=== PATIENT | female | born 1970 | race African-American/Black ===

== ENCOUNTER 2021-06-28 15:24 | Inpatient (IN) | payer OTHER ==
[2021-06-28 16:26] VITALS: BMI 36.9
[2021-06-28] MEDS ORDERED: ACETAMINOPHEN 325 MG TABLET (FP) PO PRN (17:14)
[2021-06-28] MEDS ORDERED: BENZOCAINE/MENTHOL (CHLORASEPTIC ) LOZENGE MM PRN (17:14)
[2021-06-28] MEDS ORDERED: MAG HYDROX/AL HYDROX/SIMETH 30 ML UNIT-DOSE CUP PO PRN (17:14)
[2021-06-28] MEDS ORDERED: MAGNESIUM HYDROX 2400MG/30ML ORAL SUSPENSION 30 ML CUP PO PRN (17:14)
[2021-06-28] MEDS ORDERED: METHOCARBAMOL 500 MG TABLET PO PRN (17:14)
[2021-06-28] MEDS ORDERED: LOPERAMIDE HCL 2 MG CAPSULE PO PRN (17:14)
[2021-06-28] MEDS ORDERED: ONDANSETRON *ODT* 4 MG TABLET SL PRN (17:14)
[2021-06-28] MEDS ORDERED: IBUPROFEN 400 MG TABLET (FP) PO PRN (17:14)
[2021-06-28] MEDS ORDERED: BISMUTH SUBSALICYLATE 524 MG/30 ML PO PRN (17:14)
[2021-06-28] MEDS ORDERED: NICOTINE 10 MG CARTRIDGE (INHALER) IH PRN (17:14)
[2021-06-28] MEDS ORDERED: MAGNESIUM CITRATE 300 ML BOTTLE PO PRN (17:14)
[2021-06-28] MEDS ORDERED: DICYCLOMINE HCL 10 MG CAPSULE PO PRN (17:14)
[2021-06-28] MEDS ORDERED: hydrOXYzine PAMOATE 25 MG CAPSULE (FP) PO SCH (18:00)
[2021-06-28] MEDS: ACETAMINOPHEN 325 MG TABLET (FP) PO PRN (21:09)
[2021-06-28] MEDS: hydrOXYzine PAMOATE 25 MG CAPSULE (FP) PO PRN (21:09)
[2021-06-28] MEDS ORDERED: MELATONIN 5 MG TABLETS PO SCH (22:00)
[2021-06-28] MEDS: THIAMINE HCL 100 MG TABLET (FP) PO SCH (22:27)
[2021-06-28] MEDS: diazePAM 5 MG TABLET PO SCH (22:29)
[2021-06-29] MEDS: diazePAM 5 MG TABLET PO SCH ×4 (05:17→22:19)
[2021-06-29] MEDS: PRENATAL VITAMINS W/ FOLIC ACID TABLET (FP) PO SCH (10:24)
[2021-06-29 11:08] LABS: HEMATOCRIT 34.9 % (32.4-45.2); HEMOGLOBIN 11.6 GM/dL (10.7-15.3); MCH 30.8 pg (25.7-33.7); MCHC 33.3 g/dl (32.0-36.0); MEAN CELL VOLUME 92.3 fl (80-96); MEAN PLT VOLUME 8.3 fl (7.5-11.1); PLATELET COUNT 254 10^3/uL (134-434); RBC 3.77 M/mm3 (3.60-5.2)
[2021-06-29] MEDS ORDERED: DULoxetine HCL 20 MG CAPSULE.DR PO ONE (11:13)
[2021-06-29] MEDS ORDERED: LURASIDONE HCL 20 MG TABLET PO ONE (11:13)
[2021-06-29 11:31] LABS: ALBUMIN 3.2 g/dl (3.4-5.0); BLOOD UREA NITROGEN 14.6 mg/dL (7-18)
[2021-06-29 11:32] LABS: CREATININE 0.7 mg/dL (0.55-1.3)
[2021-06-29 11:34] LABS: BILIRUBIN,TOTAL 0.4 mg/dL (0.2-1); CALCIUM 8.2 mg/dL (8.5-10.1); TOT PROT 5.6 g/dl (6.4-8.2)
[2021-06-29] MEDS ORDERED: cloNIDine HCL 0.1 MG TABLET PO ONE (13:40)
[2021-06-29] MEDS: hydrOXYzine PAMOATE 25 MG CAPSULE (FP) PO PRN (17:40)
[2021-06-29] MEDS: ACETAMINOPHEN 325 MG TABLET (FP) PO PRN (17:41)
[2021-06-29] MEDS ORDERED: traZODone HCL 50 MG TABLET (FP) PO PRN (22:00)
[2021-06-29] MEDS: THIAMINE HCL 100 MG TABLET (FP) PO SCH (22:18)
[2021-06-29] MEDS: MELATONIN 5 MG TABLETS PO PRN (22:18)
[2021-06-29] MEDS: BENZTROPINE MESYLATE 1 MG TABLET PO SCH (22:18)
[2021-06-30] MEDS: diazePAM 5 MG TABLET PO SCH ×3 (06:04→22:03)
[2021-06-30] MEDS ORDERED: DULoxetine HCL 60 MG CAPSULE.DR PO SCH (10:00)
[2021-06-30] MEDS ORDERED: LURASIDONE HCL 20 MG TABLET PO SCH (10:00)
[2021-06-30] MEDS: DULOXETINE HCL 60 MG, DULOXETINE HCL 20 MG PO SCH (10:13)
[2021-06-30] MEDS: PRENATAL VITAMINS W/ FOLIC ACID TABLET (FP) PO SCH (10:13)
[2021-06-30] MEDS: LURASIDONE HCL PO SCH (10:14)
[2021-06-30] MEDS: diazePAM 5 MG TABLET PO PRN (18:33)
[2021-06-30] MEDS: hydrOXYzine PAMOATE 25 MG CAPSULE (FP) PO PRN (22:03)
[2021-06-30] MEDS: MELATONIN 5 MG TABLETS PO PRN (22:03)
[2021-06-30] MEDS: BENZTROPINE MESYLATE 1 MG TABLET PO SCH (22:04)
[2021-06-30] MEDS: THIAMINE HCL 100 MG TABLET (FP) PO SCH (22:05)
[2021-06-30] MEDS: ACETAMINOPHEN 325 MG TABLET (FP) PO PRN (22:06)
[2021-07-01] MEDS: diazePAM 5 MG TABLET PO SCH ×2 (06:52→17:51)
[2021-07-01] MEDS: PRENATAL VITAMINS W/ FOLIC ACID TABLET (FP) PO SCH (10:15)
[2021-07-01] MEDS: LURASIDONE HCL PO SCH (10:15)
[2021-07-01] MEDS: DULOXETINE HCL 60 MG, DULOXETINE HCL 20 MG PO SCH (10:15)
[2021-07-01] MEDS: hydrOXYzine PAMOATE 25 MG CAPSULE (FP) PO PRN ×3 (10:17→22:08)
[2021-07-01] MEDS ORDERED: cloNIDine HCL 0.1 MG TABLET PO ONE (13:07)
[2021-07-01] MEDS: diazePAM 5 MG TABLET PO PRN (15:08)
[2021-07-01] MEDS: BENZTROPINE MESYLATE 1 MG TABLET PO SCH (22:08)
[2021-07-01] MEDS: THIAMINE HCL 100 MG TABLET (FP) PO SCH (22:09)
[2021-07-01] MEDS: MELATONIN 5 MG TABLETS PO PRN (22:10)
[2021-07-02 00:06] LABS: SARS-CoV-2 NAA Not Detected (Not Detected)
[2021-07-02] MEDS ORDERED: diazePAM 5 MG TABLET PO ONE (06:00)
[2021-07-02 06:46] VITALS: TEMP 97.3
[2021-07-02 08:52] VITALS: BP 111/64; PULSE 91
[2021-07-02] MEDS: PRENATAL VITAMINS W/ FOLIC ACID TABLET (FP) PO SCH (10:16)
[2021-07-02] MEDS: DULOXETINE HCL 60 MG, DULOXETINE HCL 20 MG PO SCH (10:16)
[2021-07-02] MEDS: LURASIDONE HCL PO SCH (10:16)
== END 2021-07-02 11:22 | disposition home or self-care (01) | DRG 897 ==
LOC: YASAS 15:24 → Y3N 19:34
PROVIDERS: ADMIT Allergy & Immunology; ATTEND Allergy & Immunology
PROC: HZ2ZZZZ Detoxification Services for Substance Abuse Treatment (ICD-10-PCS; principal; 2021-06-28)
DX: F10.230 Alcohol dependence with withdrawal, uncomplicated (principal); F25.9 Schizoaffective disorder, unspecified; Z62.810 Personal history of physical and sexual abuse in childhood
CPT/HCPCS: 36415; 80053; 81025; 85027; 86780; C9803-CS; J0735; U0003; U0005